=== PATIENT | male | born 1935 | race Caucasian/White ===

== ENCOUNTER 2020-06-27 10:24 | Inpatient (IN) | payer MEDICARE ==
[2020-06-27] VITALS (8 sets, daily range): BP systolic 97–123; BP diastolic 68–89; PULSE 72–84; TEMP 97.8–98
[~2020-06-27] VITALS: Ht 182.9 cm; Wt 75.0 kg
[2020-06-27 11:10] LABS: BASO % 0.2 % (0.0-2.0); GRAN % 82.9 % (42.2-75.2); HEMATOCRIT 45.3 % (42.0-52.0); HEMOGLOBIN 14.7 g/dl (13.5-18.0); LYMPH # 1.2 (1.2-3.4); LYMPH % 9.9 % (20.0-51.0); MEAN CELL VOLUME 85 fl (80.0-100.0); MEAN CORPUSCULAR HEMOGLOBIN 28 pg (27.0-31.0); MEAN CORPUSCULAR HGB CONC 33 g/dl (33.0-37.0); MEAN PLATELET VOLUME 11.3 fl (7.4-10.4); MONO # 0.8 (0.1-0.6); MONO % 6.6 % (1.7-9.3); PLATELET COUNT 225 K/mm3 (130-400); RED BLOOD COUNT 5.34 M/mm3 (4.20-5.60); REDCELL DISTRIBUTION WIDTH-CV 13.7 % (11.5-14.5)
[2020-06-27 11:13] LABS: INR 1.2 (0.8-3.0); PROTHROMBIN TIME 13.6 SECONDS (9.7-12.8)
[2020-06-27 11:25] LABS: ALBUMIN 4.5 gm/dL (3.5-5.0); BILIRUBIN,TOTAL 0.8 mg/dL (0.0-1.0); C-REACTIVE PROTEIN 4.6 mg/dL (0.0-0.9); CREATININE, serum 0.8 (0.66-1.25); TOTAL PROTEIN 8.6 gm/dL (6.4-8.2)
[2020-06-27 13:12] LABS: COLLECTION METHOD CLEAN CATCH
[2020-06-27 13:18] LABS: MUCOUS Present /lpf; PH 6 (5-8); SQUAMOUS EPITHELIAL None Seen /hpf; URINE APPEARANCE Hazy; URINE BACTERIA None Seen /hpf; URINE BILIRUBIN Negative (NEGATIVE); URINE BLOOD Negative (NEGATIVE); URINE COLOR Yellow; URINE GLUCOSE Negative (NEGATIVE); URINE KETONE 1+ (NEGATIVE); URINE LEUKOCYTE ESTERASE Negative (NEGATIVE); URINE NITRATE Negative (NEGATIVE); URINE PROTEIN(semi-quant) 2+ (NEGATIVE)
[2020-06-27] MEDS ORDERED: NORVASC 10MG10 MG PO (13:28)
--- NOTE | 2020-06-27 17:00 | NUR ---
Patient arrived to floor from PACU at 1645. He is alert and oriented. He wanted to jump out of bed right away and use the restroom. He has been on his cell phone since getting back. Denies pain and nausea. Dressing to right groin is C/D/I. Oriented patient to room. No other changes at this time. Call light within reach. Vital signs stable.
[2020-06-27 17:05] LABS: TROPONIN-I < 0.012 ng/mL (0.000-0.035)
[2020-06-27] MEDS ORDERED: FLAXSEED OIL1000 MG PO (17:08)
--- NOTE | 2020-06-27 19:00 | NUR ---
Spoke with Dr Tony, he stated patient could have a little bit of clear liquids tonight. Patient stated he is not hungry, just thirsty. Patients admission assessments have been completed. Patient denies pain and nausea. He continues to be on the phone constantly. Dr Gomez has been by to see patient. Patient is on tele for new AFIB. No other changes at this time. Call light within reach. Bed alarm on because patient forgets to call when he needs to void.
--- NOTE | 2020-06-27 22:18 | NUR ---
A/OX4. Sleeping upon entry, easily awakens to voice. Denies any pain or discomfort at this time. SCD in place. IV to LAC intact with fluids infusing. Needs met at this time. call light within reach.
[2020-06-28] VITALS (7 sets, daily range): BP systolic 113–139; BP diastolic 73–94; PULSE 86–103; TEMP 98.1–98.7
--- NOTE | 2020-06-28 06:36 | NUR ---
Pt made no complaints during this shift. Slept through the night. Denies any pain. call light within reach. Used urinal to void with assistance. call light within reach. Bed alarm set.
--- NOTE | 2020-06-28 07:08 | NUR ---
Report given to JOBY Melendez.
[2020-06-28 07:38] LABS: BASO % 0.1 % (0.0-2.0); GRAN # 11.4 (1.4-6.5); GRAN % 82.2 % (42.2-75.2); HEMATOCRIT 41.6 % (42.0-52.0); HEMOGLOBIN 13.5 g/dl (13.5-18.0); LYMPH # 1.3 (1.2-3.4); LYMPH % 9.1 % (20.0-51.0); MEAN CELL VOLUME 85 fl (80.0-100.0); MEAN CORPUSCULAR HEMOGLOBIN 28 pg (27.0-31.0); MEAN CORPUSCULAR HGB CONC 33 g/dl (33.0-37.0); MEAN PLATELET VOLUME 12.1 fl (7.4-10.4); MONO # 1.1 (0.1-0.6); MONO % 8.1 % (1.7-9.3); PLATELET COUNT 140 K/mm3 (130-400); RED BLOOD COUNT 4.87 M/mm3 (4.20-5.60)
[2020-06-28 07:49] LABS: CALCIUM 9.2 mg/dL (8.4-10.2); CREATININE, serum 0.75 (0.66-1.25); POTASSIUM 4.2 mmol/L (3.4-5.0)
--- NOTE | 2020-06-28 09:01 | NUR ---
First visit from the hacksaw inspector. No needs right now.
--- NOTE | 2020-06-28 15:27 | NUR ---
Probation Officer met with patient to discuss discharge planning. Patient lives at [facility] with his , Oly (ph#[phone]) and reports he moved here from [place] last year. Patient states his primary care physician is Dr. Juan Jose Guajardo who is located in [place]. Patient states he picks up his medications from [facility] with no difficulties. Patient does not use any DME and reports independence with ADLS. 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 Patient reports he has DPOA-HC completed but there is no copy in EMR. Patient plans to return to his apartment at [facility] once ready for discharge. Patient states he has only been to the hospital a total of three days his entire life. RIGO collaborated with RN, Nora who reports patient has been independent in his room. RIGO collaborated with Deonna at [facility] who advised they do not have DPOA-HC on file for patient as it is optional for ND. Deonna states she will follow up with the ND coordinator to see if patient has primary care set up locally. RIGO will continue to follow.
--- NOTE | 2020-06-28 18:00 | NUR ---
Patient has been doing well. No complaints of pain. He has been having decreased appetite and some nausea when trying to eat solid foods. Encouraged him to try eating soft foods. He is tolerating some liquids. He has been passing flatus. Assisted him with walking in the hallways twice but he did not go far. No other changes at this time. Call light within reach.
--- NOTE | 2020-06-28 21:37 | NUR ---
PT A/O X4, HEAD OF BED AT 45 DEGREE ANGLE, DENIES PAIN, BUT HAS SOME BURNING IN THROAT WHEN HE TAKES A DRINK OF WATER. PT WATCHING TV AND HAS CALL LIGHT WITHIN REACH. ALSO, AWARE THAT HE WILL BE NPO AT MIDNIGHT. CALL LIGHT WITHIN REACH.
[2020-06-29] VITALS (13 sets, daily range): BP systolic 105–148; BP diastolic 70–88; PULSE 61–94; TEMP 97.7–98.5
[2020-06-29 06:44] LABS: BASO % 0.2 % (0.0-2.0); EOS % 0.1 % (0-4.0); GRAN # 9.5 (1.4-6.5); GRAN % 78.7 % (42.2-75.2); HEMATOCRIT 41.2 % (42.0-52.0); HEMOGLOBIN 13.6 g/dl (13.5-18.0); LYMPH # 1.5 (1.2-3.4); LYMPH % 12.1 % (20.0-51.0); MEAN CELL VOLUME 85 fl (80.0-100.0); MEAN CORPUSCULAR HEMOGLOBIN 28 pg (27.0-31.0); MEAN CORPUSCULAR HGB CONC 33 g/dl (33.0-37.0); MEAN PLATELET VOLUME 11.7 fl (7.4-10.4); MONO % 8.5 % (1.7-9.3); PLATELET COUNT 208 K/mm3 (130-400); RED BLOOD COUNT 4.85 M/mm3 (4.20-5.60)
[2020-06-29 06:53] LABS: CALCIUM 8.9 mg/dL (8.4-10.2); CREATININE, serum 0.82 (0.66-1.25)
--- NOTE | 2020-06-29 07:15 | NUR ---
PT HAD C/O BURNING WHEN HE WOULD SWOLLOW WATER. GAVE ZOFRAN AND PT WENT TO SLEEP AND SLEPT WELL DURING THE NIGHT WITH NO FURTHER C/O. CALL LIGHT WITHIN REACH.
--- NOTE | 2020-06-29 10:35 | NUR ---
Patient is going off the floor for his TORRI/cardioversion. Patients is in the room. Consent signed and on the chart. Student is going with patient to observe. Spoke with daughter before patient went down about the plan today and his procedure. No other changes at this time. Call light within reach.
--- NOTE | 2020-06-29 11:42 | NUR ---
Patient is back from surgery. No complaints of pain or nausea at this time. Vital signs stable. Heart rate regular. is at bedside. Patient is alert and oriented. No other changes at this time. Call light within reach.
--- NOTE | 2020-06-29 15:49 | NUR ---
Critical Care Technician followed up with patient's , Oly who is in patient's room while he is in a procedure. Oly confirmed that patient's primary care physician is still in [place], [place] but they are working on establishing care locally. Oly would like to set up primary care with Dr. Sandy. Oly states patient likes to joke about taking care of her because she is older than him. Oly is in agreement with discharge plan back to [facility]. RIGO contacted Dr. Sandy's office and was advised they are in the process of establishing care for patient. RIGO contacted Deonna at [facility] to provide update.
--- NOTE | 2020-06-29 19:09 | NUR ---
Patient has been doing well this afternoon. He drank his ensure but did not want to eat the food. He stated the ensure makes him full. He has been very sleepy this afternoon. Offered to get him up to the chair but he stated he would be too cold in the chair. He walked to the randall and back. He stated he just feels very tired today. His went home after his procedure. No more complaints of nausea or pain. No other changes at this time. Call light within reach.
[2020-06-30 04:00] VITALS: BP 113/72; PULSE 76; TEMP 97.6
--- NOTE | 2020-06-30 06:55 | NUR ---
report given to JOBY Ron.
[2020-06-30 07:44] VITALS: BP 126/73; PULSE 58; TEMP 98
--- NOTE | 2020-06-30 08:00 | NUR ---
Patient in bed resting. Alert and oriented x 3. Assessment complete. Denies pain at this time. Incision to RLQ with edges well approximated. Denies pain at this time. Denies further needs at this time.
[2020-06-30 11:20] VITALS: BP 96/67; PULSE 62; TEMP 97.8
--- NOTE | 2020-06-30 12:16 | NUR ---
Dr. Rangel in to see patient.
--- NOTE | 2020-06-30 12:49 | NUR ---
Patient sitting up in bed. Alert and oriented x 3. Assessment complete. Denies pain at this time. Incision to RLQ with edges well approximated. Denies further needs at this time.
--- NOTE | 2020-06-30 14:30 | NUR ---
Patient out by wheelchair with surgical staff.
[2020-06-30] MEDS ORDERED: CORDARONE200 MG/TAB PO (15:26)
[2020-06-30] MEDS ORDERED: TOPROL XL 25MG25 MG PO (15:26)
[2020-06-30] MEDS ORDERED: ELIQUIS 5MG PO (15:26)
[2020-06-30] MEDS ORDERED: NORVASC2.5 MG PO (15:27)
--- NOTE | 2020-06-30 15:57 | NUR ---
Discharge education provided to patient. Educated on all new medications and when to call provier. Patient educated on follow up appointment with cardiology and scheduling follow up with Dr. Tony. Patient verbalizes understanding, all questions answered, INT discontinued; cathter tip intact. Patient states if he has additional questions his daughter is at nurse in [place] and can assist if needed. Denies further needs at this time.
== END 2020-06-30 14:30 | disposition home or self-care (01) | DRG 330 ==
LOC: COL.ER 10:24 → SURG 13:06
PROVIDERS: Emergency Medicine; Physician Assistant; ADMIT Surgery
PROC: 0DT80ZZ Resection of Small Intestine, Open Approach (ICD-10-PCS; 2020-06-27)
PROC: 0YQ50ZZ Repair Right Inguinal Region, Open Approach (ICD-10-PCS; principal; 2020-06-27 14:30)
PROC: 5A2204Z Restoration of Cardiac Rhythm, Single (ICD-10-PCS; 2020-06-29)
DX: K40.30 Unilateral inguinal hernia, with obstruction, without gangrene, not specified as recurrent (principal); K41.30 Unilateral femoral hernia, with obstruction, without gangrene, not specified as recurrent; I10 Essential (primary) hypertension; D72.829 Elevated white blood cell count, unspecified; E11.65 Type 2 diabetes mellitus with hyperglycemia; I48.0 Paroxysmal atrial fibrillation; Z87.891 Personal history of nicotine dependence
CPT/HCPCS: OP; 99222; 99232-AI; J0330; J0690; J1100; J2270; J2370; J2405; J2704; J3010; J7030; J7060; J7120; Q9967

== ENCOUNTER 2021-01-02 13:21 | Inpatient (IN) | payer MEDICARE ==
[~2021-01-02] VITALS: Ht 180.3 cm; Wt 79.4 kg
[~2021-01-02 13:21] MED LIST: CORDARONE200 MG/TAB PO; ELIQUIS 5MG PO; FLAXSEED OIL1000 MG PO; NORVASC 10MG10 MG PO; NORVASC2.5 MG PO; TOPROL XL 25MG25 MG PO
[2021-01-02 14:23] LABS: BASO % 0.3 % (0.0-2.0); EOS % 0.3 % (0-4.0); GRAN # 8.8 (1.4-6.5); GRAN % 76.3 % (42.2-75.2); LYMPH # 1.4 (1.2-3.4); LYMPH % 12.3 % (20.0-51.0); MEAN CELL VOLUME 80 fl (80.0-100.0); MEAN CORPUSCULAR HGB CONC 28 g/dl (33.0-37.0); MEAN PLATELET VOLUME 10.3 fl (7.4-10.4); MONO # 1.1 (0.1-0.6); MONO % 9.8 % (1.7-9.3); PLATELET COUNT 339 K/mm3 (130-400); RED BLOOD COUNT 2.78 M/mm3 (4.20-5.60); REDCELL DISTRIBUTION WIDTH-CV 15.8 % (11.5-14.5)
[2021-01-02 14:25] LABS: HEMATOCRIT 22.3 % (42.0-52.0); HEMOGLOBIN 6.3 g/dl (13.5-18.0); MEAN CORPUSCULAR HEMOGLOBIN 23 pg (27.0-31.0)
[2021-01-02 14:46] LABS: ALANINE AMINOTRANSFERASE 16 U/L (4-49); ALBUMIN 2.8 gm/dL (3.5-5.0); ALKALINE PHOSPHATASE 120 U/L (50-136); ANION GAP 8 mmol/L (7-16); AST,SGOT 26 U/L (15-37); BILIRUBIN,TOTAL 0.4 mg/dL (0.0-1.0); BLOOD UREA NITROGEN 18 mg/dL (9-20); CALCIUM 8.4 mg/dL (8.4-10.2); CARBON DIOXIDE 25 mmol/L (22-30); CHLORIDE 101 mmol/L (98-107); CREATININE, serum 1.19 (0.66-1.25); GLUCOSE 138 mg/dL (74-106); POTASSIUM 4.2 mmol/L (3.4-5.0); SODIUM 134 mmol/L (137-145)
[2021-01-02 15:01] LABS: TROPONIN-I < 0.012 ng/mL (0.000-0.035)
[2021-01-02 17:40] VITALS: BP 92/55; PULSE 56; TEMP 97.5
[2021-01-02 18:29] VITALS: BP 99/55; PULSE 64; TEMP 97.4
[2021-01-02 18:45] VITALS: BP 101/67; PULSE 64
[2021-01-02] MEDS ORDERED: NORVASC 10MG10 MG PO (18:46)
[2021-01-02] MEDS ORDERED: ELIQUIS 2.5 PO ×2 (18:47→18:49)
[2021-01-02] MEDS ORDERED: SYNTHROID0.075 MG/T PO (18:51)
[2021-01-02] MEDS ORDERED: B COMPLEX & B121 TAB PO (18:52)
[2021-01-02] MEDS ORDERED: PRAVACHOL10 MG PO (18:52)
[2021-01-02] MEDS ORDERED: VITAMIN D31000 IU PO (18:53)
[2021-01-02] MEDS ORDERED: NATURAL IRON65 MG PO (18:54)
--- NOTE | 2021-01-02 19:00 | NUR ---
PT IN ROOM, BLOOD TRANSFUSION STARTED, STAYED WITH PT FOR FIRST 15 MINUTES, PT ASSESSED, PT EDUCATED ON S/S TO REPORT OF A TRANSFUSION REACTION, PT ABLE TO ANSWER ORIENTATION QUESTIONS ACCURATELY IF GIVEN TWO WORDS TO CHOOSE FROM TO CHOOSE THE CORRECT OPTION. PT USES CANE. PT HAS LFA AND RAC IV SITE. IV FLUIDS INFUSING, PT ATE 90% OF CLD. PT NOT COMPLAINING OF L LEG PAIN AT THIS TIME. PT USED URINAL INDEPENDENTLY. UPDATED AND BLOOD CONSENT OBTAINED WELL A MED LIST FROM PT AND PHARMACY. NO OTHER NEEDS
[2021-01-02 19:43] VITALS: BP 99/51; PULSE 64; TEMP 97.4
[2021-01-02 20:07] VITALS: BP 98/54; PULSE 64; TEMP 97.5
[2021-01-02 21:30] VITALS: BP 99/59; PULSE 64; TEMP 97.4
--- NOTE | 2021-01-02 22:32 | NUR ---
PT ALERT AND OX2. PLEASENTLY CONFUSED. ON PHONE W WHEN ENTER ROOM AT SHIFT CHANGE ALONG W GETTING BLOOD TRANFUSION. DENIES SOA, DIZZY OR LIGHTHEADED. C/O LEFT LEG PAIN. SOFT BP BUT AT BASELINE, AFEBRILE. FINISHED UP CLEAR LIQ DIET. TELE, SCD. ORDERS REVIEWED. NEEDS MET. 1 UNIT BLOOD INFUSED AT 2130 . LIGHTS DOWN. PT RESTING W EYES CLOSED.
[2021-01-03 00:02] VITALS: BP 82/59; PULSE 55; TEMP 97.6
[2021-01-03 03:44] VITALS: BP 89/60; PULSE 79; TEMP 98.1
--- NOTE | 2021-01-03 07:13 | NUR ---
Patient resting i bed at this time. NS running as ordered. Patient does not C/O any pain, dicomfort, or further needs at this time. Will continue to monitor. Call light within reach. Fall percautions in place.
[2021-01-03 07:14] LABS: BASO # 0.1 (0.0-0.2); BASO % 0.4 % (0.0-2.0); EOS # 0.1 (0.0-0.7); EOS % 0.7 % (0-4.0); GRAN # 9.5 (1.4-6.5); GRAN % 78.3 % (42.2-75.2); LYMPH # 1.4 (1.2-3.4); LYMPH % 11.7 % (20.0-51.0); MEAN CELL VOLUME 79 fl (80.0-100.0); MEAN CORPUSCULAR HGB CONC 28 g/dl (33.0-37.0); MONO % 8.2 % (1.7-9.3); PLATELET COUNT 297 K/mm3 (130-400); RED BLOOD COUNT 3.51 M/mm3 (4.20-5.60); REDCELL DISTRIBUTION WIDTH-CV 15.7 % (11.5-14.5)
[2021-01-03 07:15] LABS: HEMATOCRIT 27.8 % (42.0-52.0); HEMOGLOBIN 7.9 g/dl (13.5-18.0); MEAN CORPUSCULAR HEMOGLOBIN 23 pg (27.0-31.0)
[2021-01-03 07:21] LABS: RETIC # 0.07 M/mm3 (0.02-0.16); RETIC % 2.2 % (0.5-3.52)
[2021-01-03 07:31] LABS: CALCIUM 8.5 mg/dL (8.4-10.2); CREATININE, serum 0.85 (0.66-1.25); MAGNESIUM 2.2 mg/dL (1.6-2.3); POTASSIUM 4.1 mmol/L (3.4-5.0)
[2021-01-03 07:41] LABS: IRON,SERUM < 10 ug/dL (35-150)
[2021-01-03 07:49] VITALS: BP 104/66; PULSE 73; TEMP 97.9
[2021-01-03 07:51] LABS: TOTAL IRON BINDING CAPACITY 229 ug/dL (261-462)
[2021-01-03 12:18] VITALS: BP 105/56; PULSE 66; TEMP 97.9
--- NOTE | 2021-01-03 12:39 | NUR ---
First visit from the solar panel installer. No needs right now.
--- NOTE | 2021-01-03 12:58 | NUR ---
Patient resting in bed at this time. Daughter at bedside. GI to be consulted. Possible EGD later in the day. NS running as ordered. Patient does not C/O any pain or discomfort at this time. Patient denies any further needs. Oriented x2. Will continue to monitor. Call light within reach. Fall percautions in place.
--- NOTE | 2021-01-03 13:47 | NUR ---
RIGO met with the patient and his daughter, Kiana (ph#[phone]), to discuss discharge plan. The patient resides at [facility] with his , Oly ([phone]). He reports independence with ADLs and has a cane and walker. The patient's PCP is Dr. Juan Jose Guajardo at [facility] in [place], [place] and he receives his medications from [facility]. His daughter reports that they bring the patient down to see his PCP twice a year and that the patient chats with him over the phone. Kiana reports that the doctor at [facility] gave the patient the diagnosis of dementia and that the patient did not like hearing that, so has never returned to him. The patient does not have a DPOA-HC. PT/OT worked with the patient. PT recommends home with spouse. OT recommends home with home health vs post-acute rehab. RIGO discussed these recommendations with the patient and Kiana. Kiana reports that plan is for the patient to return back home with his and they would be interested in home health through [facility]. RIGO contacted and faxed a referral to Jean Claude at [facility]. Jean Claude reports that they are able to accept the patient for services. SW to continue to follow. *Discharge plan: home with and home health*
[2021-01-03 17:16] VITALS: BP 104/51; PULSE 60; TEMP 98.3
[2021-01-03 19:07] VITALS: BP 99/68; PULSE 72; TEMP 98.4
--- NOTE | 2021-01-03 19:14 | NUR ---
Pt. had a fairly uneventful day. Pt. is still pleasantly confused. IV fluids running in Right AC as ordered. Patient is scheduled to have a EGD and Colonoscopy tomorrow at 1040. Consent still needs to be signed. Colonoscopy prep has begun. Pt. will be NPO after midnight. Bedside report given to JOBY Friedman. Call light within reach. Fall percautions in place.
--- NOTE | 2021-01-03 22:43 | NUR ---
193- PT ASSESSMENT DONE. RATING PAIN 0/10 BUT C/O KNEE PAIN. ALERT AND OX2. BOWEL PREP STARTED. PT AWARE OF EGD/COLON IN AM. NPO AT MIDNIGHT. DRINKING GATORADE W MIRALAX AND DOING WELL. DENIES SOA, DIZZY OR CHEST PAIN. IV TO RT AC POSITIONAL BUT RUNNING. CONSENT SIGNED PROCEDURE. NEEDS MET.
[2021-01-04] VITALS (10 sets, daily range): BP systolic 94–115; BP diastolic 52–71; PULSE 62–77; TEMP 97.6–98.3
--- NOTE | 2021-01-04 05:45 | NUR ---
PT DRANK ALL OF MIRILAX THAT WAS ORDERED LAST NIGHT W RANDY GRIJALVA, CONT TO HAVE LIGHT BROWN STOOL SEMI WATERY. 6AM MIRALAX STARTED NOW. PT DOING WELL WITH DRINKING, NO NAUSEA. CALLS OUT FOR HELP APPROPRIATLY OVERNIGHT.
--- NOTE | 2021-01-04 07:13 | NUR ---
Patient resting in bed at this time. Fluids running as ordered. No signs of pain or discomfort at this time. Patient denies any further needs. Will continue to monitor. Call light within reach. Fall percautions in place.
[2021-01-04 07:14] LABS: BASO % 0.3 % (0.0-2.0); EOS % 0.3 % (0-4.0); GRAN # 9.3 (1.4-6.5); GRAN % 77.4 % (42.2-75.2); HEMATOCRIT 27.2 % (42.0-52.0); HEMOGLOBIN 7.6 g/dl (13.5-18.0); LYMPH # 1.5 (1.2-3.4); LYMPH % 12.1 % (20.0-51.0); MEAN CELL VOLUME 81 fl (80.0-100.0); MEAN CORPUSCULAR HEMOGLOBIN 23 pg (27.0-31.0); MEAN CORPUSCULAR HGB CONC 28 g/dl (33.0-37.0); MEAN PLATELET VOLUME 11.2 fl (7.4-10.4); MONO # 1.1 (0.1-0.6); MONO % 9.4 % (1.7-9.3); PLATELET COUNT 306 K/mm3 (130-400); RED BLOOD COUNT 3.37 M/mm3 (4.20-5.60); REDCELL DISTRIBUTION WIDTH-CV 15.9 % (11.5-14.5)
[2021-01-04 07:23] LABS: CALCIUM 8.4 mg/dL (8.4-10.2); CREATININE, serum 0.97 (0.66-1.25); POTASSIUM 3.6 mmol/L (3.4-5.0)
--- NOTE | 2021-01-04 10:43 | NUR ---
Pt. taken down for EGD and Colonoscopy.
--- NOTE | 2021-01-04 12:04 | NUR ---
PT. back from EGD and colonoscopy. Per report he tolerated the procedure well. Patient does not C/O any new pain, just an chronic aching located on his left leg. Post op vitals being monitored. Patient denies any futher needs at this time. Will continue to monitor. Call light within reach. Fall percautions in place.
--- NOTE | 2021-01-04 16:08 | NUR ---
TELE INFORMED THIS RN THAT PATIENT HAD GONE INTO AFIB AND IS RATE CONTROLLED. DR. MAI INFORMED. PATIENT IS NOT CURRENLY ON ELIQUIS OR HEPRAN DRIP DUE TO GI BLEEDING. SCDS ARE APPLIED. WILL CONTINUE TO MONITOR. CALL LIGHT WITHIN REACH. FALL PERCAUTIONS IN PLACE.
--- NOTE | 2021-01-04 17:32 | NUR ---
Patient has been sleeping all afternoon/evening. Colonoscopy showed possible cancer. Dr. Dimas spoke with patient and his about the results and DNR. Patient and verbalized an understanding and denied any further questions. Patient denies any discomfort at this time. Denies any further needs. Patient complains of aching on his left leg, but stated that it has been a chronic issue for him. Will continue to monitor. Call light within reach. IV fluids infusing as ordered. Fall percautions in place.
--- NOTE | 2021-01-04 19:30 | NUR ---
Patient assessed at this time. Alert and oriented x 4, and able to make needs known. Reported level 5 leg pain and given PRN APAP as requested. Peripheral IV to right AC. Denies SOB and dyspnea. LS CTA. Respirations even and unlabored. HRI. Telemetry in place: a-fib rate controlled. Capillary refill less than 3 seconds. Non-tenting skin turgor. BSAx4. Abdomen soft and non-tender. 1+ edema BLE. Voices no questions, needs, or concerns at this time. Resting in bed with call light within reach.
[2021-01-05] VITALS (13 sets, daily range): BP systolic 104–114; BP diastolic 53–72; PULSE 58–74; TEMP 97.9–98.7
--- NOTE | 2021-01-05 06:11 | NUR ---
Patient has been resting in bed with call light within reach. Has denied having pain and discomfort since receiving PRN APAP last night. IV fluids continue per orders. Voices no questions, needs, or concerns at this time. High fall risk precautions remain in place.
[2021-01-05 06:44] LABS: CREATININE, serum 1.14 (0.66-1.25); POTASSIUM 3.3 mmol/L (3.4-5.0)
[2021-01-05 06:48] LABS: BASO % 0.4 % (0.0-2.0); EOS % 0.4 % (0-4.0); GRAN # 7.6 (1.4-6.5); GRAN % 78.6 % (42.2-75.2); LYMPH % 10.1 % (20.0-51.0); MEAN CELL VOLUME 79 fl (80.0-100.0); MEAN CORPUSCULAR HGB CONC 29 g/dl (33.0-37.0); MEAN PLATELET VOLUME 11.2 fl (7.4-10.4); MONO % 9.9 % (1.7-9.3); PLATELET COUNT 293 K/mm3 (130-400); RED BLOOD COUNT 3.02 M/mm3 (4.20-5.60)
[2021-01-05 06:54] LABS: HEMATOCRIT 23.8 % (42.0-52.0); HEMOGLOBIN 6.8 g/dl (13.5-18.0); MEAN CORPUSCULAR HEMOGLOBIN 23 pg (27.0-31.0)
--- NOTE | 2021-01-05 08:30 | NUR ---
PT PLEASANT, AOX4 AT THIS TIME, INITIALLY THOUGHT IT WAS NIGHT TIME BUT PT CORRECTED HIMSELF. UNIT OF BLOOD HAS BEEN ORDERED, CT TAKEN, CALL LIGHT WITHIN REACH, PT DENIES PAIN/DISCOMFORT, NO OTHER NEEDS AT THIS TIME.
--- NOTE | 2021-01-05 11:26 | NUR ---
BLOOD VERIFIED WITH RN, EDUCATED PT ON S/S OF BLOOD TRANSFUSION REACTION, STAYING WITH PT FOR FIRST 15MIN OF BLOOD TRANSFUSION, PT VITALS TAKEN AND STABLE.
--- NOTE | 2021-01-05 17:33 | NUR ---
1 unit of blood infused, pt alert and partially oriented, answers questions appropriately but sometime does not respond appropriately in conversation. pt and son at bedside during day and got updated by provider, iv fluids dc'd, pt denies pain, lfa int started, no other needs
[2021-01-06 03:43] VITALS: BP 112/63; PULSE 68; TEMP 98.3
--- NOTE | 2021-01-06 05:08 | NUR ---
PATIENT SLEPT WELL OVER THE NIGHT. WAKES EASILY FOR PERSONAL CARES; EASILY FALLS BACK TO SLEEP. N/C OR NEEDS EXPRESSED.
[2021-01-06 07:41] LABS: BASO % 0.4 % (0.0-2.0); EOS % 0.2 % (0-4.0); GRAN # 8.6 (1.4-6.5); GRAN % 77.3 % (42.2-75.2); LYMPH # 1.3 (1.2-3.4); LYMPH % 11.8 % (20.0-51.0); MEAN CELL VOLUME 79 fl (80.0-100.0); MEAN CORPUSCULAR HGB CONC 30 g/dl (33.0-37.0); MEAN PLATELET VOLUME 11.3 fl (7.4-10.4); MONO # 1.1 (0.1-0.6); MONO % 9.7 % (1.7-9.3); PLATELET COUNT 275 K/mm3 (130-400); RED BLOOD COUNT 3.34 M/mm3 (4.20-5.60)
[2021-01-06 07:44] LABS: HEMATOCRIT 26.5 % (42.0-52.0); HEMOGLOBIN 7.9 g/dl (13.5-18.0); MEAN CORPUSCULAR HEMOGLOBIN 24 pg (27.0-31.0)
[2021-01-06 07:46] VITALS: BP 99/63; PULSE 63; TEMP 97.8
[2021-01-06 07:56] LABS: CALCIUM 8.1 mg/dL (8.4-10.2); CREATININE, serum 1.22 (0.66-1.25); POTASSIUM 4.1 mmol/L (3.4-5.0)
[2021-01-06 11:46] VITALS: BP 110/54; PULSE 78; TEMP 97.9
--- NOTE | 2021-01-06 16:00 | NUR ---
MALE EXTERNAL CATH PLACED
[2021-01-06 16:01] VITALS: BP 115/60; PULSE 63; TEMP 98.4
--- NOTE | 2021-01-06 17:41 | NUR ---
Pt. sitting up in bed independently eating supper, alert and oriented x3, Fluids currently infusing, N/S left hand at 75 ml/hr. Nurse called pt.'s , Oly Christianson to get consent for 01/07/21 robotic right hemicolectomy. Nurse received consent and answered all relevant questions. Pt.'s Oly requested to change code status from FULL CODE to DNR. PA informed and order was processed. Pt. currently expresses no further needs at this time. Call light within reach.
[2021-01-06 19:32] VITALS: BP 100/67; PULSE 72; TEMP 98.7
--- NOTE | 2021-01-06 21:07 | NUR ---
Patient sitting up in bed and watching TV upon enter the room. Patient A/O x3. Patient denies any pain or discomfort. Denies SOB, headach, dizziness, N/V or stomach discomfort. NS running at 75ml/hr via left hand. Male external catheter in place and draining clear yellow urine. Call light within reach. Bed alarms on. Patient denies any needs at this time.
[2021-01-06 23:28] VITALS: BP 111/65; PULSE 69; TEMP 98.2
[2021-01-07] VITALS (198 sets, daily range): BP systolic 110–120; BP diastolic 58–79; PULSE 68–79; TEMP 97.6–98.5; O2SAT 76–100
--- NOTE | 2021-01-07 06:00 | NUR ---
NPO maintained from midnight for Colon resection procedure today. VS remains stable over the night. No acute distress noted throughout the night. Call light within reach.
--- NOTE | 2021-01-07 07:20 | NUR ---
IVF INFUSING, PT AOX4, REPORTS L LEG PAIN THAT IS CHRONIC FOR HIM, MALE EXTERNAL CATH IN PLACE AND DRAINING CLEAR YELLOW URINE, PT HAS EQUAL COMPACTING MACHINE OPERATOR/TENDER, PT PLEASANT, NPO SINCE MIDNIGHT, CALL LIGHT WITHIN REACH, ASSESSMENT PERFORMED, NO OTHER NEEDS AT THIS TIME.
[2021-01-07 07:50] LABS: BASO % 0.4 % (0.0-2.0); EOS % 0.2 % (0-4.0); GRAN # 8.3 (1.4-6.5); GRAN % 77.5 % (42.2-75.2); LYMPH # 1.2 (1.2-3.4); LYMPH % 11.4 % (20.0-51.0); MEAN CELL VOLUME 78 fl (80.0-100.0); MEAN CORPUSCULAR HGB CONC 30 g/dl (33.0-37.0); MEAN PLATELET VOLUME 11.2 fl (7.4-10.4); MONO % 9.7 % (1.7-9.3); PLATELET COUNT 234 K/mm3 (130-400); RED BLOOD COUNT 3.42 M/mm3 (4.20-5.60)
[2021-01-07 07:52] LABS: HEMATOCRIT 26.6 % (42.0-52.0); HEMOGLOBIN 7.9 g/dl (13.5-18.0); MEAN CORPUSCULAR HEMOGLOBIN 23 pg (27.0-31.0)
[2021-01-07 07:58] LABS: CALCIUM 8.1 mg/dL (8.4-10.2); CREATININE, serum 1.19 (0.66-1.25); POTASSIUM 4.1 mmol/L (3.4-5.0)
--- NOTE | 2021-01-07 12:41 | NUR ---
MULTIPLE ATTEMPTS MADE TO REACH PT FOR CONSENT ON CYSTOSCOPY, UNABLE TO GET TO HER. LEFT VOICEMAIL WITH CALL BACK NUMBER.
--- NOTE | 2021-01-07 13:21 | NUR ---
The patient is to have surgery and then transfer to the surgical unit. SW to continue to follow.
--- NOTE | 2021-01-07 15:00 | NUR ---
pt taken down for surgery
--- NOTE | 2021-01-07 18:02 | NUR ---
Report received from JOBY Medina on Medical. Pt down in OR at this time, will give report on to nightshift nurse who will resume care.
--- NOTE | 2021-01-07 19:53 | NUR ---
I was told in report from the PACU Nurse that the patient's usual Hemoglobin is around 8. Total estimated blood loss was 50cc and that he possibly might need a unit transfusion tonight. His Hemoglobin was 7.9 prior to surgery. I called Larissa ANTOINE and asked what she suggested. She mentioned to draw an H/H around midnight and we can go from there.
[2021-01-08] VITALS (379 sets, daily range): BP systolic 104–123; BP diastolic 71–77; PULSE 62–91; TEMP 97.7–98; O2SAT 74–100
[2021-01-08 00:32] LABS: HEMATOCRIT 31.6 % (42.0-52.0); HEMOGLOBIN 9.4 g/dl (13.5-18.0)
--- NOTE | 2021-01-08 07:05 | NUR ---
RECEIVED REPORT FROM JOBY MARTE. LAB AT BEDSIDE. FC PATENT AND DRAINING TO GRAVITY. VSS. CALL LIGHT WITHIN REACH. ALL LAP SITES AND ABDOMINAL INCISION LOOK C/D/I AND WELL APPROXIMATED. PT DENIES ANY PAIN.
[2021-01-08 07:51] LABS: MEAN CELL VOLUME 80 fl (80.0-100.0); MEAN CORPUSCULAR HGB CONC 29 g/dl (33.0-37.0); PLATELET COUNT 264 K/mm3 (130-400); RED BLOOD COUNT 3.91 M/mm3 (4.20-5.60)
[2021-01-08 07:55] LABS: HEMATOCRIT 31.3 % (42.0-52.0); MEAN CORPUSCULAR HEMOGLOBIN 23 pg (27.0-31.0)
[2021-01-08 08:06] LABS: CALCIUM 8.7 mg/dL (8.4-10.2); CREATININE, serum 1.22 (0.66-1.25); MAGNESIUM 2.1 mg/dL (1.6-2.3); POTASSIUM 4.4 mmol/L (3.4-5.0)
--- NOTE | 2021-01-08 08:23 | NUR ---
DR BUTCHER AT BEDSIDE FOR ASSESSMENT. PHYSICIAN STATES CAN ADVANCE PT'S DIET TODAY AND CAN RETURN TO THE SURGICAL FLOOR IF OKAY WITH HOSPITALIST. INFORMED PHYSICIAN ABOUT PT'S WBC TODAY, PHYSICIAN STATES R/T SURGERY YESTERDAY AND WILL WATCH TREND. NEW ORDERS RECEIVED.
[2021-01-08 08:37] LABS: LYMPHOCYTE 3 % (20.0-51.0); NEUTROPHILS 97 % (42.0-75.2); NUCLEATED RED BLOOD CELL 1 (0-6); PLATELET ESTIMATE NORMAL (NORMAL)
[2021-01-08 08:38] LABS: ANISOCYTOSIS 1+; HYPOCHROMIA 4+; OVALOCYTES 1+; POIKILOCYTOSIS 1+
--- NOTE | 2021-01-08 08:50 | NUR ---
DR MATA AT BEDSIDE FOR ASSESSMENT AND DISCUSSING POC WITH PT.
--- NOTE | 2021-01-08 19:54 | NUR ---
Assessment complete and charted. Patient resting in bed. Denies pains at this time. Alert and orientated.
--- NOTE | 2021-01-08 23:38 | NUR ---
Patient awoke confused. Stating he would like to know why staff turned on all the movies in the room. Patient pointing to information flyers and information board on wall. Attempted to redirect patient. Patient refusing. Removed flyers from wall. Patient would like staff to find out who did it. Patient unable to be reorientated to this time. Will continue to reattempt. Patient having decreased urine output. 60ml since 1899. Larissa ANTOINE notified. Orders placed.
[2021-01-09] VITALS (69 sets, daily range): BP systolic 106–122; BP diastolic 55–79; PULSE 66–90; TEMP 97.2–97.7; O2SAT 86–95
[2021-01-09 03:13] LABS: COLLECTION METHOD CLEAN CATCH
--- NOTE | 2021-01-09 03:14 | NUR ---
Patient had 10 ml UOP since midnight. Updated Larissa GÓMEZ Awaiting orders.
[2021-01-09 03:22] LABS: MUCOUS Present /lpf; PH 5 (5-8); SQUAMOUS EPITHELIAL 0-2 /hpf; URINE APPEARANCE Cloudy; URINE BACTERIA None Seen /hpf; URINE BILIRUBIN Negative (NEGATIVE); URINE BLOOD 3+ (NEGATIVE); URINE COLOR Amber; URINE GLUCOSE Negative (NEGATIVE); URINE KETONE Negative (NEGATIVE); URINE LEUKOCYTE ESTERASE 1+ (NEGATIVE); URINE NITRATE Negative (NEGATIVE); URINE PROTEIN(semi-quant) 2+ (NEGATIVE); URINE RBC >50 /hpf; URINE UROBILINOGEN Negative (NEGATIVE)
--- NOTE | 2021-01-09 04:42 | NUR ---
Patient taken to CT. Patient reported urinating during CT. Patient urinated around landeros cath. Joelle topete. Notified Larissa ANTOINE. Landeros exchange complete once returned from CT per Larissa ANTOINE orders.
--- NOTE | 2021-01-09 04:58 | NUR ---
Per Larissa PA, bolus 500ml of NS. CT results okay. Clarified order d/t patient edema. Okay to give.
[2021-01-09 05:44] LABS: MEAN CELL VOLUME 78 fl (80.0-100.0); MEAN CORPUSCULAR HGB CONC 30 g/dl (33.0-37.0); MEAN PLATELET VOLUME 10.8 fl (7.4-10.4); PLATELET COUNT 312 K/mm3 (130-400); RED BLOOD COUNT 4.01 M/mm3 (4.20-5.60); REDCELL DISTRIBUTION WIDTH-CV 16.4 % (11.5-14.5)
[2021-01-09 05:53] LABS: BILIRUBIN,TOTAL 0.4 mg/dL (0.0-1.0); CALCIUM 9.1 mg/dL (8.4-10.2); CREATININE, serum 1.44 (0.66-1.25); POTASSIUM 4.5 mmol/L (3.4-5.0); TOTAL PROTEIN 6.7 gm/dL (6.4-8.2)
[2021-01-09 06:11] LABS: HEMATOCRIT 31.1 % (42.0-52.0); HEMOGLOBIN 9.4 g/dl (13.5-18.0); MEAN CORPUSCULAR HEMOGLOBIN 23 pg (27.0-31.0)
--- NOTE | 2021-01-09 07:00 | NUR ---
Report given to JOBY Escobar
[2021-01-09 07:26] LABS: LYMPHOCYTE 2 % (20.0-51.0); NEUTROPHILS 93 % (42.0-75.2)
[2021-01-09 07:27] LABS: ANISOCYTOSIS 2+; HYPOCHROMIA 4+; MICROCYTOSIS 1+; PLATELET ESTIMATE NORMAL (NORMAL)
[2021-01-09 07:28] LABS: OVALOCYTES 1+; POIKILOCYTOSIS 1+
--- NOTE | 2021-01-09 10:05 | NUR ---
PT TO ROOM 345 PER WHEEL CHAIR. REPORT FROM KAYLA RN @2287. PT IS CURRENTLY A/O X3 WITH FORGETFULLNESS. PT IS ABLE TO ANSWER QUESTIONS APPROPRIATELY. SOME SUNDOWNERS BY REPORT FROM KAYLA. LUNGS CTA, PT BOWEL SOUNDS PRESENT. UPPER AND LOWER EXT EDEMA APPEARS TO BE BASELINE. INCISIONS TO ABD CDI EDGES WELL APPROXIMATED. IV TO PUMP @100 MLS/HR. LOPEZ TO DD WITH CLEAR YELLOW URINE IN COLLECTION BAG.
--- NOTE | 2021-01-09 15:39 | NUR ---
PT UP TO BR HAD MED BM RETURNED TO BED.
--- NOTE | 2021-01-09 16:48 | NUR ---
Patient transferred up from the ICU. SW met with patient to review OT recommendation for post acute rehab. Patient lives at [facility] and states he is open to going to [facility] for rehab. SW contacted both patient's daughter Tamera and patient's Oly who are also in agreement with referral to [facility]. RIGO contacted Deonna at [facility] and faxed referral. RIGO also faxed clinical information to [facility] for pre authorization for [employer]. Discharge Plan: Awaiting screen from [facility]
--- NOTE | 2021-01-09 18:27 | NUR ---
EMPTIED 350 MLS TEA COLORED URINE FROM LOPEZ. ASSISTED PT TO CALL . PT UNABLE TO REMEMBER HOW TO USE PHONE OR CALL LIGHT. REORIENTED. PT VERBALIZED UNDERSTANDING BUTNOT SURE HOW LONG WILL BE ABLE TO RETAIN.
--- NOTE | 2021-01-09 23:31 | NUR ---
1999- ASSESSMENT COMPLETE. PT SETTING UP IN BED, REPORT OF GOOD APPETITE W DINNER TONIGHT. PT C.O NAUSEA. MEDS RECENTLY GIVEN. REPORTS NO PAIN. INCISION C/D/I. NS RUNNING TO RT FA. JOHN TO DD. NEEDS MET.
[2021-01-10] VITALS (7 sets, daily range): BP systolic 101–141; BP diastolic 60–87; PULSE 63–98; TEMP 97.5–98.5
--- NOTE | 2021-01-10 04:44 | NUR ---
RESTED THROUGH NIGHT WITHOUT INCIDENT. BED ALARM ON BUT PT NEVER ATTEMPT TO GET UP UNSAFLY. DOES NOT REPORT PAIN HOWEVER WHEN ASKING RATES 03/30,DOSE OF NORCO ALONG W AM MEDS GIVEN. INC TO ABD C/D/I, GARDENIA. NEEDS MET.
[2021-01-10 07:37] LABS: BASO % 0.1 % (0.0-2.0); GRAN # 15.2 (1.4-6.5); GRAN % 85.3 % (42.2-75.2); LYMPH # 1.2 (1.2-3.4); LYMPH % 6.8 % (20.0-51.0); MEAN CELL VOLUME 80 fl (80.0-100.0); MEAN CORPUSCULAR HGB CONC 29 g/dl (33.0-37.0); MEAN PLATELET VOLUME 11.3 fl (7.4-10.4); MONO # 1.2 (0.1-0.6); MONO % 6.7 % (1.7-9.3); PLATELET COUNT 335 K/mm3 (130-400); REDCELL DISTRIBUTION WIDTH-CV 16.6 % (11.5-14.5)
[2021-01-10 07:38] LABS: HEMATOCRIT 30.2 % (42.0-52.0); HEMOGLOBIN 8.8 g/dl (13.5-18.0); MEAN CORPUSCULAR HEMOGLOBIN 23 pg (27.0-31.0)
[2021-01-10 07:47] LABS: CALCIUM 8.6 mg/dL (8.4-10.2); CREATININE, serum 1.45 (0.66-1.25); MAGNESIUM 2.2 mg/dL (1.6-2.3); POTASSIUM 4.2 mmol/L (3.4-5.0)
--- NOTE | 2021-01-10 08:00 | NUR ---
PATIENT IS ORIENTED X2 BUT DISPLAYS OCCATIONAL CONFUSION/FORGETFULNESS. PATIENT HAS HX OF DEMENTIA. VSS WITH TELE INPLACE. PATEINT HAS HX OF A-FIB WITH HR RATE CONTROLED IN THE 80'S. DENIES PAIN. PATIENT REPORTS SOME NAUSEA OVER NIGHT. ABD IS DISTENDED, SOFT AND WITH POSITIVE BOWL SOUNDS. PATIENT REPORTS HE IS NOT PASSING GAS. LAST BM WAS YESTERDAY. BREAKFAST TRAY AT BEDSIDE. PATIENT TOLERATING LOW FIBER DIET. IV FLUIDS INFUSING INTO RIGHT FORARM VIA PUMP. LOPEZ TO DD WITH SMALL AMOUNTS OF DARK URINE WITH SEDIMENT NOTED. PATIENT IS WEAK, SMALL STATURE MALE. PT/OT/ST CONSULTED. DNR. HEAD TO TOE ASSESSMENT COMPLETE. SCD'S TO BLE. STUDENT NURSE WORKING WITH PATIENT TODAY, SEE CHARTING. NO OTHER NEEDS. CALL LIGHT IN REACH. BED ALARM ON.
--- NOTE | 2021-01-10 16:24 | NUR ---
Director Mission faxed clinical updates to [facility]. Insurance authorization pending.
--- NOTE | 2021-01-10 17:00 | NUR ---
FOLDER MACHINE ADJUSTER NOTIFIED NURSING THAT PATIENT GOT SICK AND VOMITED APPROX 200CC OF DARK BILE COLORED EMESIS WITH FOOD CHUNKS NOTED. PATIENT STILL FEELING NAUSEATED. TO EARLY TO REPEAT DOSE OF ZOFRAN, WILL NOTIFY PHYSICIAN.
--- NOTE | 2021-01-10 19:18 | NUR ---
RECEIVED CHANGE OF SHIFT REPORT FROM DAY SHIFT NURSE.
--- NOTE | 2021-01-10 22:06 | NUR ---
OBSERVED BY STAFF N/V OF MURKEY/BROWNISH EMISIS WITH INTERMITTENT NAUSEA, REFUSED TO TAKE HS MEDS AT THIS TIME. IVF INFUSING WITH NO PROBLEMS. TELE IN PLACE. DENIES CHEST PAIN/SHORTNESS OF AIR AT THIS TIME. REPORTS SOME DISCOMFORT TO THROAT WITH FREQUENT EMISIS EXPECTORATED SO FAR TODAY. ABD SOFT WITH HYPO TO NO BOWEL SOUNDS ON AUSCUTATION. DOES NOT WANT TO MOVE DUE TO N/V AT THIS TIME.
--- NOTE | 2021-01-10 23:52 | NUR ---
INFORMED JOY OPERATOR HOSP PROVIDER OF CURRENT URINE OUTPUT OF 20 ML SINCE 1830 TODAY. ORDERS GIVEN FOR IVF BOLUS AND IV RATE INCREASE. INFORMED PATIENT STILL HAVING INTERMITTENT VOMITING, REFUSING ORAL INTAKE OF ORAL FLUIDS AND MEDS. IV ZOFRAN GIVEN.
--- NOTE | 2021-01-10 23:55 | NUR ---
STARTED IVF BOLUS PER D.O.
--- NOTE | 2021-01-11 01:59 | NUR ---
DENIES CHEST PAIN/SOA. REPORTS SOME STOMACH DISCOMFORT, DENIES NAUSEA AT THIS TIME. TELE IN PLACE. IVF INFUSING AT THIS TIME. URINE OUTPUT SINCE BOLUS STARTED 10 ML OBSERVED. WILL CONTINUE TO MONITOR OUTPUT.
--- NOTE | 2021-01-11 02:40 | NUR ---
LOAN TELLER HOSP PROVIDER, Matthew BAILEY APRN, CALLED FOR PATIENT STATUS UPDATE OF URINE OUTPUT, INFORMED OF 10 ML OUTPUT WITH NO NEW ORDERS ENTERED BY PROVIDER AT THIS TIME.
[2021-01-11 03:57] VITALS: BP 123/76; PULSE 99; TEMP 97.7
--- NOTE | 2021-01-11 04:00 | NUR ---
OBSERVED LARGE AMOUNT OF INCONTIENT URINE WITH CATHETER PARTIALLY FOLDED OVER ITSELF AT STAT LOCK JUNCTION DUE TO DD TUBING AROUND FLEXED RLE. DENIES DISCOMFORT TO TIP OF PENIS WITH CATHETER. REPORTS TINGLING DISCOMFORT TO RLE.
--- NOTE | 2021-01-11 06:17 | NUR ---
INFORMED DR BUTCHER OF PATIENT'S CURRENT STATUS WITH CONTINUED VOMITING, NO BOWEL SOUNDS WITH NO ORDERS GIVEN AT THIS TIME.
--- NOTE | 2021-01-11 07:05 | NUR ---
CHANGE OF SHIFT REPORT GIVEN TO DAY SHIFT NURSE, MILES Pizarro RN ACCOMPANIED BY STUDENT NURSE.
--- NOTE | 2021-01-11 07:10 | NUR ---
Pt resting in bed has basin in hands in fear that he will throw up. No pain complaints.
[2021-01-11 07:11] VITALS: BP 142/73; PULSE 92; TEMP 97.6
[2021-01-11 07:29] LABS: BASO % 0.2 % (0.0-2.0); GRAN # 10.7 (1.4-6.5); GRAN % 84.4 % (42.2-75.2); LYMPH # 1.1 (1.2-3.4); LYMPH % 8.2 % (20.0-51.0); MEAN CELL VOLUME 80 fl (80.0-100.0); MEAN CORPUSCULAR HEMOGLOBIN 23 pg (27.0-31.0); MEAN CORPUSCULAR HGB CONC 29 g/dl (33.0-37.0); MEAN PLATELET VOLUME 10.8 fl (7.4-10.4); MONO # 0.9 (0.1-0.6); MONO % 6.7 % (1.7-9.3); RED BLOOD COUNT 4.36 M/mm3 (4.20-5.60); REDCELL DISTRIBUTION WIDTH-CV 16.7 % (11.5-14.5)
[2021-01-11 07:36] LABS: HEMATOCRIT 34.7 % (42.0-52.0); PLATELET COUNT 179 K/mm3 (130-400)
[2021-01-11 07:38] LABS: CALCIUM 8.7 mg/dL (8.4-10.2); CREATININE, serum 1.71 (0.66-1.25); POTASSIUM 4.3 mmol/L (3.4-5.0)
--- NOTE | 2021-01-11 08:31 | NUR ---
Patient is sitting in bed, feeling nausea. He is alert and oriented, bed pad wet, provided bed bath and change of linens. No further needs at the moment. Call light within reach.
--- NOTE | 2021-01-11 09:12 | NUR ---
Patient is sitting in bed, bladder was scanned showing 81 mls. Catheter was flushed with 25 ml, no return.
--- NOTE | 2021-01-11 09:19 | NUR ---
Dr Ndiaye and Dr Wade both in to see patient, new orders wrote. Pt not having complaints of any pain. Pt now NPO and aware. Heels floated as well as both arms put up on pillows. PO antibiotic switched to IV. SCDs in bilaterally. Bowel sounds hypoactive, lung sound with crackles. Skin intact with no redness. Arms are edemitus and bilateral lower extremities have pitting edema. PT has worked with pt. Will continue to monitor
[2021-01-11 11:19] LABS: PH 5 (5-8); URINE APPEARANCE Clear; URINE COLOR Yellow
[2021-01-11 11:20] LABS: URINE GLUCOSE Negative (NEGATIVE); URINE PROTEIN(semi-quant) 1+ (NEGATIVE)
[2021-01-11 11:21] LABS: URINE BILIRUBIN Negative (NEGATIVE); URINE KETONE Negative (NEGATIVE); URINE NITRATE Negative (NEGATIVE)
[2021-01-11 11:22] LABS: URINE BLOOD 3+ (NEGATIVE); URINE LEUKOCYTE ESTERASE Trace (NEGATIVE)
--- NOTE | 2021-01-11 11:22 | NUR ---
Nephrology notified of consult. Evangelina and Latrice have seen patient, discussed pt with them as well. UA sent to lab, awaiting results. Pt doing well so far with no emesis for my shift. O2 on 2L per NC for o2 88%, O2 up to 93%
[2021-01-11 11:25] LABS: URINE UROBILINOGEN Negative (NEGATIVE)
[2021-01-11 11:43] LABS: SQUAMOUS EPITHELIAL 0-2 /hpf; URINE BACTERIA Rare /hpf
[2021-01-11 11:45] LABS: COLLECTION METHOD CLEAN CATCH
[2021-01-11 12:17] VITALS: BP 105/72; PULSE 101; TEMP 97.4
--- NOTE | 2021-01-11 13:00 | NUR ---
Pt has low output, Dr Ndiaye, Dr Wade and nephrology all aware
--- NOTE | 2021-01-11 13:12 | NUR ---
Oliver catheter exchanged due to patient having low output and urine leaking around catheter. Pt and another family member arrived. Updated on new orders
--- NOTE | 2021-01-11 14:13 | NUR ---
Special Educator faxed clinical updates to Deonna at [facility] who advised they can clincally accept patient. SW notified patient's , Oly that [facility] can accept. Insurance Authorization still pending.
--- NOTE | 2021-01-11 14:42 | NUR ---
Patient is sitting in bed, alert and oriented, still with feelings of nausea. No more leaking from the catheter, 35 ml of urine in bag. Patient states no more needs right now.
[2021-01-11 16:22] VITALS: BP 112/49; PULSE 105; TEMP 98.2
--- NOTE | 2021-01-11 17:55 | NUR ---
Pt did not have any emesis today. He did get nauseated mid afternoon, zofran given. Minimal output. Minimal pain complaints. Pt did work with PT today in bed.
--- NOTE | 2021-01-11 18:15 | NUR ---
Patient is sitting in bed, alert and oriented, VSS, had bowel movement (liquid brown) was changed and now is dry and clean. No further needs at the moment.
--- NOTE | 2021-01-11 18:48 | NUR ---
Pt did have an incontinent stool around 1730. Liquid and small in amount. No complaints of pain. Oliver with minimal output. Pt resting at this time, report given
--- NOTE | 2021-01-11 19:31 | NUR ---
RECEIVED CHANGE OF SHIFT REPORT FROM DAY SHIFT NURSE. LOPEZ IN PLACE. TELE IN PLACE. IVF INFUSING WITH NO PROBLEMS AT THIS TIME OF REPORT.
--- NOTE | 2021-01-11 20:00 | NUR ---
PATIENT WEAK, ABLE TO MOVE BLE/BUE INDEPENDENTLY BUT REQUIRES ASSIST WITH REPOSITIONING. ASST WITH TURNING WITH NO C/O OR PROBLEMS. LOPEZ CATH IN PLACE, TELE IN PLACE, IVF INFUSING WITH NO PROBLEMS. DENIES CHEST PAIN/SOA AT THIS TIME.
[2021-01-11 20:51] VITALS: BP 122/71; PULSE 94; TEMP 98
[2021-01-12] VITALS (7 sets, daily range): BP systolic 100–121; BP diastolic 63–73; PULSE 87–92; TEMP 97.5–98.4
[2021-01-12 07:10] LABS: BASO % 0.1 % (0.0-2.0); GRAN # 8.9 (1.4-6.5); GRAN % 82.8 % (42.2-75.2); LYMPH % 8.9 % (20.0-51.0); MEAN CELL VOLUME 80 fl (80.0-100.0); MEAN CORPUSCULAR HGB CONC 28 g/dl (33.0-37.0); MEAN PLATELET VOLUME 10.3 fl (7.4-10.4); MONO # 0.8 (0.1-0.6); MONO % 7.5 % (1.7-9.3); RED BLOOD COUNT 3.56 M/mm3 (4.20-5.60); REDCELL DISTRIBUTION WIDTH-CV 16.7 % (11.5-14.5)
[2021-01-12 07:14] LABS: HEMATOCRIT 28.6 % (42.0-52.0); HEMOGLOBIN 8.1 g/dl (13.5-18.0); MEAN CORPUSCULAR HEMOGLOBIN 23 pg (27.0-31.0); PLATELET COUNT 280 K/mm3 (130-400)
--- NOTE | 2021-01-12 07:19 | NUR ---
CHANGE OF SHIFT REPORT GIVEN TO DAY SHIFT NURSE, ORLANDO HEMPHILL.
[2021-01-12 07:21] LABS: ALBUMIN 2.4 gm/dL (3.5-5.0); CALCIUM 8.1 mg/dL (8.4-10.2); CREATININE, serum 1.47 (0.66-1.25); PHOSPHOROUS 3.3 mg/dL (2.5-4.5); POTASSIUM 3.9 mmol/L (3.4-5.0)
--- NOTE | 2021-01-12 11:00 | NUR ---
Patient is doing better this morning. He stated he is having nausea but it's getting better. He stated it's always there even after getting zofran. He is not having any emesis. He is having loose stools, no liquid. He is passing flatus. He denies pain. Offered to get him to the chair but he stated he did not think he could handle it. He continues to be weak. Discussed if he was hungry, he stated no. His urine continues to be hazy with sediment. Encouraged him to do deep breathing exercises. No other changes at this time. Call light yary nice.
--- NOTE | 2021-01-12 18:30 | NUR ---
Patient has been doing well most the day. He still has some nausea but no emesis today. He had few sips of water this afternoon to wet his mouth and tolerated it well. No complaints of pain. He had 3 medium sized loose stools today, no diarrhea. No other changes at this time. Call light within reach. Bed alarm on.
--- NOTE | 2021-01-12 20:00 | NUR ---
Report received, assumed care for awake overnight monitor. Assessment complete. VS stable. Very drowsy and confused at times. States he still feels some nausea but denies need for intervention. Did take a few sips of H2O but stated he didnt want to over do it. Denies pain. Does get short of breath on exertion. Lap sites x4-edges well approximated. Low transverse abdominal incision-edges well approximated. Oliver cath with cloudy dark yellow urine. IV to right FA with LR@60ml/hr. [place] f care discussed for this shift to include HS meds/nausea meds/IV fluids/calling for questions/concerns. Verbalizes understanding. Call light in reach/bed alarm on-will monitor.
[2021-01-13 04:07] VITALS: BP 124/68; PULSE 84; TEMP 97.6
--- NOTE | 2021-01-13 04:28 | NUR ---
Hospitalist notified of need for clarification on Amiodarone orders. Patient currently NPO- Physician Progress note states to hold Amiodarone while NPO but not HELD in EMAR or placed in orders. This nurse held Amiodarone HS dose per progress note. MATT Elena requests Dr Ndiaye to clarify when arrives at 0600. Will pass on to dayshift in bedside report.
[2021-01-13 06:16] LABS: MEAN CELL VOLUME 82 fl (80.0-100.0); MEAN CORPUSCULAR HGB CONC 28 g/dl (33.0-37.0); MEAN PLATELET VOLUME 10.2 fl (7.4-10.4); PLATELET COUNT 264 K/mm3 (130-400); RED BLOOD COUNT 3.51 M/mm3 (4.20-5.60); REDCELL DISTRIBUTION WIDTH-CV 16.8 % (11.5-14.5)
[2021-01-13 06:21] LABS: HEMATOCRIT 28.7 % (42.0-52.0); HEMOGLOBIN 8.1 g/dl (13.5-18.0); MEAN CORPUSCULAR HEMOGLOBIN 23 pg (27.0-31.0)
[2021-01-13 06:25] LABS: CREATININE, serum 1.07 (0.66-1.25); POTASSIUM 3.5 mmol/L (3.4-5.0)
--- NOTE | 2021-01-13 06:57 | NUR ---
Rested well this shift-did not have any more stools this shift. Oliver cath continues to have dark yellow cloudy urine. Encouraged PO intake-did take minimal sips of H2O. C/O nausea x1 but did not want any medication intervention. Denies current needs. Call light in reach. Will monitor.
[2021-01-13 07:20] VITALS: BP 119/69; PULSE 84; TEMP 97.4
[2021-01-13 11:21] VITALS: BP 115/65; PULSE 87; TEMP 97.5
--- NOTE | 2021-01-13 13:00 | NUR ---
Patient has been doing well today. No complaints of pain or nausea. His diet has been advanced to Full liquids. He is tolerating it well so far. No bowel movements today but is passing flatus. His and son visited this morning. Patient still won't get up to the chair for this nurse or for therapy. He stated he would consider it after eating later. No other changes at this time. Call light within reach.
[2021-01-13 16:45] VITALS: BP 117/74; PULSE 84; TEMP 97.7
--- NOTE | 2021-01-13 17:54 | NUR ---
Patient is doing much better this evening. He is eating full liquids without nausea or vomiting. No complaints of pain. The BAND EDGER helped him get cleaned up and shaved his face. Patient stated he feel much better today. Discussed getting up to the chair this evening, he said he will tomorrow when therapy comes to work with him. No other changes at this time. Call light within reach.
[2021-01-13 19:31] VITALS: BP 115/62; PULSE 85; TEMP 97.7
[2021-01-14 00:22] VITALS: BP 122/68; PULSE 77; TEMP 98
[2021-01-14 04:37] VITALS: BP 120/66; PULSE 69; TEMP 98.5
--- NOTE | 2021-01-14 06:02 | NUR ---
PT DENIES PAIN. TRANSVERSE AND 3 LAP SITE INCISIONS WELL APPROXIMATED, WITHOUT ACTIVE DRAINAGE. NO N/V.
[2021-01-14 06:24] LABS: MEAN CELL VOLUME 81 fl (80.0-100.0); MEAN CORPUSCULAR HGB CONC 28 g/dl (33.0-37.0); MEAN PLATELET VOLUME 10.5 fl (7.4-10.4); PLATELET COUNT 250 K/mm3 (130-400); RED BLOOD COUNT 3.65 M/mm3 (4.20-5.60); REDCELL DISTRIBUTION WIDTH-CV 16.7 % (11.5-14.5)
[2021-01-14 06:28] LABS: HEMATOCRIT 29.7 % (42.0-52.0); HEMOGLOBIN 8.4 g/dl (13.5-18.0); MEAN CORPUSCULAR HEMOGLOBIN 23 pg (27.0-31.0)
[2021-01-14 06:37] LABS: CREATININE, serum 0.9 (0.66-1.25); POTASSIUM 3.7 mmol/L (3.4-5.0)
[2021-01-14 07:24] VITALS: BP 114/69; PULSE 72; TEMP 97.3
--- NOTE | 2021-01-14 07:43 | NUR ---
Patient up to chair this am, weak. He was very agreeable to get to chair. 2 assist. Patient denies the need for pain medication. He does report increased pain when he coughs. Patient provided with juice, applesauce & pudding for breakfast. He denies nausea. Abdomen soft, incision sites open to air & edges well approximated. Oliver to DD with adequate output. Sediment noted. IVF to RFA oer orders. Vss on Tele. Will monitor. High fall risk protocol followed/
--- NOTE | 2021-01-14 08:50 | NUR ---
Help Desk Support attended clinical rounds with the team. The patient is not ready for discharge this day.
--- NOTE | 2021-01-14 09:34 | NUR ---
Patient sitting up in chair. He worked with therapy. Hospitalist team rounded. Iv to Int. I called Oly his and gave her and update on plan of care, She plans on visiting tmrw morning prior to potential discharge. Patient denies any other needs at this time
--- NOTE | 2021-01-14 10:03 | NUR ---
Table Saw Operator contacted [facility] and spoke with Nuris. Nuris confirms that the patient is authorized for SNF at [facility]. Auth # [id number]. Nuris reports she spoke to Lisa with [facility] on 01/13 to confirm that they are approved.
--- NOTE | 2021-01-14 11:30 | NUR ---
Patient assisted back in to bed. He ambulated into hallway, one assist with walker. Dyspnea with exertion. Tolerating liquids. Continue to monitor.
[2021-01-14 11:42] VITALS: BP 100/63; PULSE 63; TEMP 97.7
--- NOTE | 2021-01-14 13:50 | NUR ---
Construction Project Administrator faxed updates to Deonna at [facility].
[2021-01-14 16:00] VITALS: BP 104/59; BP 154/57; PULSE 62; PULSE 65; TEMP 98.2
--- NOTE | 2021-01-14 16:00 | NUR ---
Spoke to -verified landeros may be removed. Patient tolerated well. pericare provided. Patient up and ambualted to hallway, walker & gaitbelt used. patient sitting up in chair. pain managed. Will monitor.
--- NOTE | 2021-01-14 20:01 | NUR ---
Customer Support Engineer assisted patient to clean up he had an incontinent episode. She assisted him back to bed. He tolerated dinner.Denies nausea. [facility]
--- NOTE | 2021-01-14 20:40 | NUR ---
PATIENT IS CALM IN THE BED.DENIES PAIN.DUE MEDS GIVEN.NO OTHER NEEDS AT THIS TIME.
[2021-01-14 21:05] VITALS: BP 98/62; PULSE 66; TEMP 97.9
[2021-01-15 00:44] VITALS: BP 105/65; PULSE 73; TEMP 98
[2021-01-15 03:22] VITALS: BP 110/69; PULSE 73; TEMP 97.6
--- NOTE | 2021-01-15 06:03 | NUR ---
PATIENT HAD A CALM NIGHT.DENIES PAIN.DUE MEDS GIVEN.NO OTHER NEEDS AT THIS TIME.
[2021-01-15 08:00] VITALS: BP 93/61; PULSE 71; TEMP 97.5
[2021-01-15] MEDS ORDERED: CORDARONE200 MG/TAB PO (08:53)
--- NOTE | 2021-01-15 08:55 | NUR ---
HOSPITALIST TEAM ROUNDING, SEE ORDERS.
[2021-01-15 08:58] LABS: HEMATOCRIT 27.4 % (42.0-52.0); HEMOGLOBIN 7.9 g/dl (13.5-18.0); MEAN CELL VOLUME 79 fl (80.0-100.0); MEAN CORPUSCULAR HEMOGLOBIN 23 pg (27.0-31.0); MEAN CORPUSCULAR HGB CONC 29 g/dl (33.0-37.0); MEAN PLATELET VOLUME 10.5 fl (7.4-10.4); PLATELET COUNT 145 K/mm3 (130-400); RED BLOOD COUNT 3.45 M/mm3 (4.20-5.60)
[2021-01-15] MEDS ORDERED: AMOXICILLIN 8751 TAB PO (09:03)
[2021-01-15 09:10] LABS: CREATININE, serum 0.78 (0.66-1.25); POTASSIUM 3.8 mmol/L (3.4-5.0)
[2021-01-15 09:22] LABS: ANISOCYTOSIS 1+; BAND 5 % (0-10); LYMPHOCYTE 3 % (20.0-51.0); NEUTROPHILS 89 % (42.0-75.2); OVALOCYTES 1+; PLATELET ESTIMATE NORMAL (NORMAL); SCHISTOCYTES 1+
[2021-01-15 11:15] VITALS: BP 115/71; PULSE 72; TEMP 98.1
--- NOTE | 2021-01-15 12:36 | NUR ---
PT AT BEDSIDE ENCOURAGING PATIENT TO WALK. SEE PT NOTES.
--- NOTE | 2021-01-15 13:18 | NUR ---
Freight Trucker attended clinical rounds with the team. The patient is to tentatively discharge today, 01/15 to [facility] to [facility] for post acute rehab. The team and patient were in agreeance. The patient will be transported at 1430. SW attempted to contact the patient's regarding bean picker time, left message. There are no additional needs at this time.
--- NOTE | 2021-01-15 15:50 | NUR ---
PATIENT DISCHARGING TO [facility] VIA [facility] SERV[facility]. GAVE INSIDE SALES DIRECTOR INFO PACKET. CALLED REPORT TO [facility] NURSE. HELIUM ARC WELDER DC'D IV SITE AND TELE. PATIENT DRESSED AND PERSONAL BELONGINGS SENT. PATIENT DISCHARGED.
== END 2021-01-15 15:50 | DRG 330 ==
LOC: COL.ER 13:21 → SURG 15:43 → MEDICAL 15:43 → SURG 01-07 16:59 → ICU 01-07 18:25 → SURG 01-09 09:00
PROVIDERS: Emergency Medicine; Family Medicine; Hospitalist; Physician Assistant; Student in an Organized Health Care Education/Training Program; Urology; ADMIT Internal Medicine
PROC: 0DBK8ZX Excision of Ascending Colon, Via Natural or Artificial Opening Endoscopic, Diagnostic (ICD-10-PCS; 2021-01-04)
PROC: 0T778DZ Dilation of Left Ureter with Intraluminal Device, Via Natural or Artificial Opening Endoscopic (ICD-10-PCS; 2021-01-07 14:45)
PROC: 0DTF4ZZ Resection of Right Large Intestine, Percutaneous Endoscopic Approach (ICD-10-PCS; principal; 2021-01-08)
PROC: 0WQF4ZZ Repair Abdominal Wall, Percutaneous Endoscopic Approach (ICD-10-PCS; 2021-01-08)
PROC: 8E0W4CZ Robotic Assisted Procedure of Trunk Region, Percutaneous Endoscopic Approach (ICD-10-PCS; 2021-01-08)
DX: C18.2 Malignant neoplasm of ascending colon (principal); K56.7 Ileus, unspecified; D62 Acute posthemorrhagic anemia; N39.0 Urinary tract infection, site not specified; N17.9 Acute kidney failure, unspecified; E44.0 Moderate protein-calorie malnutrition; N13.1 Hydronephrosis with ureteral stricture, not elsewhere classified; Z66 Do not resuscitate; F03.90 Unspecified dementia, unspecified severity, without behavioral disturbance, psychotic disturbance, mood disturbance, and anxiety; E87.6 Hypokalemia; I48.0 Paroxysmal atrial fibrillation; I12.9 Hypertensive chronic kidney disease with stage 1 through stage 4 chronic kidney disease, or unspecified chronic kidney disease; E03.9 Hypothyroidism, unspecified; D72.829 Elevated white blood cell count, unspecified; K43.9 Ventral hernia without obstruction or gangrene; E86.0 Dehydration; N18.9 Chronic kidney disease, unspecified; E78.5 Hyperlipidemia, unspecified; Z20.822 Contact with and (suspected) exposure to COVID-19; Z79.01 Long term (current) use of anticoagulants; Z68.27 Body mass index [BMI] 27.0-27.9, adult
CPT/HCPCS: 99223-AI; 99232-AI; 99233-AI; 99239; A4314; C1769; C2617; C9113; J0282; J0690; J0696; J1100; J2405; J2704; J3010; J3480; J7030; J7060; J7120; P9016; Q9967

== ENCOUNTER 2021-01-17 12:00 | Outpatient (RCR) | payer MEDICARE ==
[2021-01-21 12:38] LABS: BASO % 0.2 % (0.0-2.0); EOS % 0.2 % (0-4.0); GRAN # 14.1 (1.4-6.5); GRAN % 83.5 % (42.2-75.2); LYMPH # 1.2 (1.2-3.4); LYMPH % 7.4 % (20.0-51.0); MEAN CELL VOLUME 84 fl (80.0-100.0); MEAN CORPUSCULAR HGB CONC 29 g/dl (33.0-37.0); MEAN PLATELET VOLUME 11.9 fl (7.4-10.4); MONO # 1.2 (0.1-0.6); MONO % 7.3 % (1.7-9.3); PLATELET COUNT 258 K/mm3 (130-400); RED BLOOD COUNT 3.44 M/mm3 (4.20-5.60); REDCELL DISTRIBUTION WIDTH-CV 18.9 % (11.5-14.5)
[2021-01-21 12:43] LABS: HEMATOCRIT 28.9 % (42.0-52.0); HEMOGLOBIN 8.3 g/dl (13.5-18.0); MEAN CORPUSCULAR HEMOGLOBIN 24 pg (27.0-31.0)
== END 2021-04-17 | disposition home or self-care (01) ==
LOC: EUO
PROVIDERS: Internal Medicine
DX: R79.89 Other specified abnormal findings of blood chemistry (principal); D72.829 Elevated white blood cell count, unspecified; R60.1 Generalized edema; I72.3 Aneurysm of iliac artery

== ENCOUNTER 2021-01-17 13:01 | Outpatient (RCR) | payer MEDICARE ==
[~2021-01-17] VITALS: Ht 180.3 cm; Wt 78.0 kg
[2021-01-17] VITALS (13 sets, daily range): BP systolic 92–126; BP diastolic 62–92; PULSE 70–105; TEMP 97.9–99.2
--- NOTE | 2021-01-17 19:51 | NUR ---
PT TOLERATING TRANSFUSIONS WELL. INCONTINENCE CARE WAS PROVIDED IN BETWEEN UNITS. ATTENDS CHANGED, INITIALLY INCONTINENT OF URINE AND TRACE AMT STOOL, THEN HAD AN LARGE SOFT/LOOSE DARK BROWN STOOL. PT RESTING NOW ON A CHUX PAD, SET UP WITH URINAL. PT DENIES NEEDS AT THIS TIME, DENIES ANY SOB OR OTHER COMPLAINT. TM
--- NOTE | 2021-01-17 20:30 | NUR ---
Cares taken over at this time from JOBY Diaz. Pt is resting quietly in the bed and tolerating blood transfusion without difficulty. Call light within reach.
--- NOTE | 2021-01-17 21:30 | NUR ---
Transfusion completed at this time.
--- NOTE | 2021-01-17 21:40 | NUR ---
Called [facility] and spoke with Emily, nurse, and gave her report on the pt and stated that he is ready for transport.
--- NOTE | 2021-01-17 21:57 | NUR ---
Pt discharged at this time. Pt escorted out via WC with this nurse and [facility] employee.
== END 2021-01-17 21:59 ==
LOC: EUO 13:01
DX: D50.0 Iron deficiency anemia secondary to blood loss (chronic) (principal)
CPT/HCPCS: J1940; J7050; P9016

== ENCOUNTER → 2021-01-17 | Outpatient (REF) ==
[~2021-01-17] MED LIST changes: +AMOXICILLIN 8751 TAB PO; +B COMPLEX & B121 TAB PO; +ELIQUIS 2.5 PO; +NATURAL IRON65 MG PO; +PRAVACHOL10 MG PO; +SYNTHROID0.075 MG/T PO; +VITAMIN D31000 IU PO
[2021-01-17 07:07] LABS: BASO % 0.1 % (0.0-2.0); EOS % 0.2 % (0-4.0); GRAN # 11.1 (1.4-6.5); GRAN % 82.6 % (42.2-75.2); LYMPH # 1.1 (1.2-3.4); LYMPH % 8.1 % (20.0-51.0); MEAN CELL VOLUME 81 fl (80.0-100.0); MEAN CORPUSCULAR HGB CONC 28 g/dl (33.0-37.0); MEAN PLATELET VOLUME 11.7 fl (7.4-10.4); MONO # 0.9 (0.1-0.6); MONO % 6.6 % (1.7-9.3); PLATELET COUNT 219 K/mm3 (130-400); RED BLOOD COUNT 2.88 M/mm3 (4.20-5.60)
[2021-01-17 07:34] LABS: HEMOGLOBIN 6.6 g/dl (13.5-18.0); MEAN CORPUSCULAR HEMOGLOBIN 23 pg (27.0-31.0)
[2021-01-17 07:35] LABS: HEMATOCRIT 23.2 % (42.0-52.0)
[2021-01-17 07:39] LABS: CALCIUM 7.9 mg/dL (8.4-10.2); CREATININE, serum 0.76 (0.66-1.25); POTASSIUM 3.9 mmol/L (3.4-5.0)
== END ==
LOC: ZCOL.LAB 06:58
PROVIDERS: Internal Medicine
DX: D72.829 Elevated white blood cell count, unspecified (principal); R79.89 Other specified abnormal findings of blood chemistry; I72.3 Aneurysm of iliac artery; R60.1 Generalized edema

== ENCOUNTER → 2021-01-21 | Outpatient (REF) ==
[2021-01-21 22:50] LABS: HEMATOCRIT 28.9 % (42.0-52.0); HEMOGLOBIN 8.3 g/dl (13.5-18.0); MEAN CELL VOLUME 84 fl (80.0-100.0); MEAN CORPUSCULAR HEMOGLOBIN 24 pg (27.0-31.0); MEAN CORPUSCULAR HGB CONC 29 g/dl (33.0-37.0); PLATELET COUNT 258 K/mm3 (130-400); RED BLOOD COUNT 3.44 M/mm3 (4.20-5.60); REDCELL DISTRIBUTION WIDTH-CV 18.9 % (11.5-14.5)
[2021-01-21 22:51] LABS: BASO % 0.2 % (0.0-2.0); EOS % 0.2 % (0-4.0); GRAN # 14.1 (1.4-6.5); GRAN % 83.5 % (42.2-75.2); LYMPH # 1.2 (1.2-3.4); LYMPH % 7.4 % (20.0-51.0); MEAN PLATELET VOLUME 11.9 fl (7.4-10.4); MONO # 1.2 (0.1-0.6); MONO % 7.3 % (1.7-9.3)
== END ==
LOC: ZCOL.LAB 22:28
PROVIDERS: Internal Medicine
DX: Z01.89 Encounter for other specified special examinations (principal)